=== PATIENT | male | born 1980 | race Hispanic/Latino ===

== ENCOUNTER 2018-08-09 08:44 | Observation (INO) | payer OTHER ==
[2018-08-09 08:55] VITALS: BMI 40.3
[2018-08-09 09:15] LABS: BASO # 0.01 K/mm3 (0.0-2.0); BASO % 0.2 % (0.0-3.0); EOS # 0.1 (0.0-0.7); EOS % 2.1 % (1.5-5.0); HEMOGLOBIN 15.9 g/dL (14.0-18.0); LYMPH # 1.8 (1.2-3.4); LYMPH % 27.7 % (22.0-35.0); MEAN CELL VOLUME 88.2 fl (80.0-105.0); MEAN CORPUSCULAR HEMOGLOBIN 30.7 pg (25.0-35.0); MEAN CORPUSCULAR HGB CONC 34.8 g/dl (31.0-37.0); MEAN PLATELET VOLUME 9.7 fl (7.0-11.0); MONO # 0.4 (0.1-0.6); MONO % 6.8 % (1.0-6.0); RBC 5.18 10^6/uL (3.5-6.1); RED CELL DISTRIBUTION WIDTH 12.3 % (11.5-14.5); WHITE BLOOD COUNT 6.3 10^3/uL (4.5-11.0)
[2018-08-09 09:21] LABS: INR 1.04; PARTIAL THROMBOPLASTIN TIME 34.5 Seconds (26.9-38.3); PROTHROMBIN TIME 11.7 SECONDS (9.4-12.5)
[2018-08-09 09:25] LABS: ALB/GLOB RATIO 1.4 (1.1-1.8); ALBUMIN 4.8 g/dL (3.0-4.8); ALT/SGPT 46 U/L (7-56); AST/SGOT 34 U/L (17-59); BLOOD UREA NITROGEN 12 mg/dL (7-21); CALCIUM 9.5 mg/dL (8.4-10.5); GFR NON-AFRICAN AMERICAN > 60
[2018-08-09] MEDS ORDERED: Sodium Chloride 0.9% 1,000 ML IV STA (09:27)
[2018-08-09 09:35] LABS: TROPONIN I < 0.01 ng/mL
--- NOTE | 2018-08-09 09:53 | ED PDOC ---
Arrival/HPI - General Chief Complaint: Palpitations Time Seen by Provider: 08/09/18 08:46 Historian: Patient - History of Present Illness Narrative History of Present Illness (Text): 08/09/18 08:46 Wilder Mccarthy is a 38 year old male, with a past medical history of gout and shoulder surgery, who presents to the emergency department complaining of chest pain since last night. Patient informs he has had similar symptoms before but has not consulted a physician regarding current complaint. Patient informs pain sensation as pressure rating the pain as a 5/10. Patient denies pain radiating to jaw or arm, fevers, headache, dyspnea on exertion, cough, abdominal pain, nausea, vomiting, diarrhea, back pain, neck pain, or any other complaint. Time/Duration: 24 hours Symptom Onset: Sudden Symptom Course: Intermittent Quality: Pressure Severity Level: 4 (between 4-5) Activities at Onset: Light Context: Home Past Medical History - Provider Review Nursing Documentation Reviewed: Yes - Musculoskeletal/Rheumatological Hx Gout: Yes - Psychiatric Hx Substance Use: No - Surgical History Other/Comment: L shoulder sx. R knee sx - Anesthesia Hx Anesthesia: Yes Hx Anesthesia Reactions: No Hx Malignant Hyperthermia: No Family/Social History - Physician Review Nursing Documentation Reviewed: Yes Family/Social History: Hypertension, CAD/[place] Smoking Status: Former Smoker Hx Alcohol Use: No Hx Substance Use: No Allergies/Home Meds Allergies/Adverse Reactions: Allergies No Known Allergies Allergy (Verified 08/09/18 12:27) Review of Systems - Physician Review All systems were reviewed & negative as marked: Yes - Review of Systems Constitutional: Night Sweats. absent: Fevers Respiratory: SOB. absent: Cough Cardiovascular: Chest Pain. absent: GIBBS Gastrointestinal: absent: Abdominal Pain, Diarrhea, Nausea, Vomiting Musculoskeletal: absent: Back Pain, Neck Pain Neurological: Dizziness. absent: Headache Physical Exam Vital Signs Reviewed: Yes Vital Signs Temp Pulse Resp BP Pulse Ox 08/09/18 08:57 102 H 18 153/97 H 95 08/09/18 08:44 98.8 F 100 H 20 153/97 H 96 Temperature: Afebrile Blood Pressure: Hypertensive Pulse: Tachycardic Respiratory Rate: Normal Appearance: Positive for: Well-Appearing, Non-Toxic, Comfortable Pain Distress: None Mental Status: Positive for: Alert and Oriented X 3 - Systems Exam Head: Present: Atraumatic, Normocephalic Pupils: Present: PERRL Extroacular Muscles: Present: EOMI Conjunctiva: Present: Normal Mouth: Present: Moist Mucous Membranes Neck: Present: Normal Range of Motion Respiratory/Chest: Present: Clear to Auscultation, Good Air Exchange. No: Respiratory Distress, Accessory Muscle Use, Wheezes, Rales, Rhonchi, Tender to Palpation (No tenderness to palpation to anterior chest wall) Cardiovascular: Present: Regular Rate and Rhythm, Normal S1, S2, Other (Hypertensive). No: Murmurs, Rub, Gallop Abdomen: No: Tenderness, Distention, Peritoneal Signs Back: Present: Normal Inspection Upper Extremity: Present: Normal Inspection. No: Cyanosis, Edema Lower Extremity: Present: Normal Inspection. No: Edema Neurological: Present: GCS=15, Speech Normal Skin: Present: Warm, Dry, Normal Color. No: Rashes Psychiatric: Present: Alert, Oriented x 3, Normal Insight, Normal Concentration Medical Decision Making ED Course and Treatment: 08/09/18 08:46 Impression: 38 year old male who presents to the emergency department with complaints of chest pain. Differential Diagnosis included but are not limited to: --ACS --PE Plan: -- EKG -- Labs -- Chest X-Ray -- O2 Nasal Cannula -- Urinalysis -- Nitrostat SL Tab -- Lopressor -- Reglan -- IV Fluids -- Reassess and disposition Prior Visits: Notes and results from previous visits were reviewed. Progress Notes: 08/09/18 10:[address] Schaefer(PCP), who is aware and accepts patient. He requests Dr. Landrum(cardiology) and medical imaging technologist for consult. 08/09/18 10:[address] Schaefer's medical imaging technologist, who is aware, accepts, and will come down to see patient. - Lab Interpretations Lab Results: PT 11.7 SECONDS (9.4-12.5) 08/09/18 08:50 INR 1.04 08/09/18 08:50 APTT 34.5 Seconds (26.9-38.3) 08/09/18 08:50 D-Dimer, Quantitative < 200 ng/mlDDU (0-243) 08/09/18 08:50 Troponin I < 0.01 ng/mL 08/09/18 08:50 Total Bilirubin 0.9 mg/dL (0.2-1.3) 08/09/18 08:50 AST 34 U/L (17-59) 08/09/18 08:50 ALT 46 U/L (7-56) 08/09/18 08:50 Alkaline Phosphatase 79 U/L (38-126) 08/09/18 08:50 Total Protein 8.3 g/dL (5.8-8.3) 08/09/18 08:50 Albumin 4.8 g/dL (3.0-4.8) 08/09/18 08:50 Globulin 3.5 gm/dL 08/09/18 08:50 Albumin/Globulin Ratio 1.4 (1.1-1.8) 08/09/18 08:50 08/09/18 08:50 08/09/18 08:50 Lab Results 08/09/18 09:50: Urine Color Yellow, Urine Appearance Clear, Urine pH 7.0, Ur Specific [place] 1.020, Urine Protein Negative, Urine Glucose (UA) Negative, Urine Ketones Negative, Urine Blood Small H, Urine Nitrate Negative, Urine Bilirubin Negative, Urine Urobilinogen 0.2, Ur Leukocyte Esterase Negative, Urine RBC 0 - 2, Urine WBC 0 - 2, Ur Epithelial Cells 0 - 2, Urine Bacteria Few 08/09/18 08:50: Hemoglobin A1c 5.6 08/09/18 08:50: Triglycerides 310 H, Cholesterol 193, LDL Cholesterol Direct 117, HDL Cholesterol 31 08/09/18 08:50: Free T4 0.98, TSH 3rd Generation 2.29, Alcohol, Quantitative < 10 08/09/18 08:50: D-Dimer, Quantitative < 200 08/09/18 08:50: PT 11.7, INR 1.04, APTT 34.5 08/09/18 08:50: WBC 6.3, RBC 5.18, Hgb 15.9, Hct 45.7, MCV 88.2, MCH 30.7, MCHC 34.8, RDW 12.3, Plt Count 468 H, MPV 9.7, Neut % (Auto) 63.2, Lymph % (Auto) 27.7, [place] % (Auto) 6.8 H, Eos % (Auto) 2.1, Baso % (Auto) 0.2, Lymph # (Auto) 1.8, [place] # (Auto) 0.4, Eos # (Auto) 0.1, Baso # (Auto) 0.01, Absolute Neuts (auto) 3.99 08/09/18 08:50: Sodium 140, Potassium 3.9, Chloride 104, Carbon Dioxide 25, Anion Gap 15, BUN 12, Creatinine 1.0, Est GFR ( Amer) > 60, Est GFR (Non- Af Amer) > 60, Random Glucose 100, Calcium 9.5, Total Bilirubin 0.9, AST 34, ALT 46, Alkaline Phosphatase 79, Troponin I < 0.01, Total Protein 8.3, Albumin 4.8, Globulin 3.5, Albumin/Globulin Ratio 1.4 I have reviewed the lab results: Yes - RAD Interpretation Narrative RAD Interpretations (Text): 08/09/18 10:30 Chest X-Ray shows: FINDINGS: LUNGS: No active pulmonary disease. PLEURA: No significant pleural effusion identified, no pneumothorax apparent. CARDIOVASCULAR: No aortic atherosclerotic calcification present. Normal cardiac size. No pulmonary vascular congestion. OSSEOUS STRUCTURES: No significant abnormalities. VISUALIZED UPPER ABDOMEN: Normal. OTHER FINDINGS: None. IMPRESSION: No active disease. 08/09/18 15:40 Carotid Artery US, shows: FINDINGS: There is mild intimal-medial thickening noted at the carotid bifurcations bilaterally. The peak systolic velocity in the proximal right internal carotid artery is 52 cm/sec. This corresponds to a 0-19 percent proximal right ICA stenosis. Normal systolic velocities are noted in the proximal right external carotid artery. There is antegrade flow in the small right vertebral artery. The peak systolic velocity in the proximal left internal carotid artery is 55 cm/sec. This corresponds to a 0-19 percent proximal left ICA stenosis. Normal systolic velocities are noted in the proximal left external carotid artery. There is antegrade flow in the dominant left vertebral artery. IMPRESSION: 1. Bilateral 0-19 percent proximal ICA stenoses. 2. Antegrade flow in both vertebral arteries. Radiology Orders: 08/09/18 08:55 CHEST PORTABLE [RAD] Stat Superintendent Service: Radiologist - EKG Interpretation EKG Interpretation (Text): 08/09/18 08:52 Reviewed EKG, shows: NSR at [address] elevations / depressions. No T wave inversions. Interpreted by ED Physician: Yes Type: 12 lead EKG - Medication Orders Current Medication Orders: Sodium Chloride (Sodium Chloride 0.9%) 1,000 mls @ 999 mls/hr IV .Q1H1M STA Stop: 08/09/18 10:27 Discontinued Medications Metoclopramide HCl (Reglan) 10 mg IVP STAT STA Stop: 08/09/18 09:28 Nitroglycerin (Nitrostat Sl Tab) 0.4 mg SL STAT STA Stop: 08/09/18 09:28 Discontinued Medications Acetaminophen (Tylenol 325mg Tab) 650 mg PO Q6 PRN PRN Reason: TEMP>=99.5F Acetaminophen (Tylenol 650 Mg Supp) 650 mg RC Q6H PRN PRN Reason: TEMP>=99.5F Allopurinol (Zyloprim) [address] [facility] Last Admin: 08/11/18 10:07 Dose: 100 mg Aspirin (Ecotrin) [address] [facility] Last Admin: 08/10/18 09:43 Dose: 81 mg Aspirin (Ecotrin) [address] [facility] Last Admin: 08/11/18 10:03 Dose: 81 mg Atorvastatin Calcium (Lipitor) [address] [facility] Last Admin: 08/09/18 17:30 Dose: 20 mg Atorvastatin Calcium (Lipitor) [address] [facility] Last Admin: 08/11/18 00:14 Dose: 40 mg Enoxaparin Sodium (Lovenox) [address] [facility]; Protocol Last Admin: 08/11/18 10:04 Dose: 40 mg Subcutaneous Administrations Document 08/11/18 10:04 THANH (Rec: 08/11/18 10:04 THANH [id number]) Charges for Administration # of Subcutaneous Administrations 1 Ergocalciferol (Drisdol 50,000 Intl Units Cap) [address] [facility] Last Admin: 08/11/18 00:16 Dose: 1 cap Hydrochlorothiazide (Microzide) 12.[address] [facility] Sodium Chloride (Sodium Chloride 0.9%) 1,000 mls @ 999 mls/hr IV .Q1H1M STA Stop: 08/09/18 10:27 Last Admin: 08/09/18 09:57 Dose: 999 mls/hr eMAR Start Stop Document 08/09/18 09:57 SRE (Rec: 08/09/18 09:58 SRE [id number]) Intravenous Solution Start Date 08/09/18 Start Time 09:50 End Date 08/09/18 End time 10:50 Total Infusion Time 60 Influenza Virus Vaccine (Flucelvax Quad 0698-1828 Syr) 60 mcg IM .ONCE ONE Stop: 08/09/18 17:30 Lisinopril (Zestril) [address] [facility] Last Admin: 08/10/18 09:43 Dose: 5 mg MAR Pulse and Blood Pressure Document 08/10/18 09:43 (Rec: 08/10/18 09:43 [id number]) Pulse Pulse Rate (60-90 beats/min) 69 Blood Pressure Blood Pressure (100/60-150/90 mm Hg) 165/101 Lisinopril (Zestril) [address] [facility] Last Admin: 08/11/18 10:06 Dose: 10 mg Metoclopramide HCl (Reglan) 10 mg IVP STAT STA Stop: 08/09/18 09:28 Last Admin: 08/09/18 09:59 Dose: 10 mg IVP Administration Document 08/09/18 09:59 SRE (Rec: 08/09/18 09:59 SRE [id number]) Charges for Administration # of IVP Administrations 1 Metoprolol Tartrate (Lopressor) 5 mg IVP STAT STA Stop: 08/09/18 10:08 Last Admin: 08/09/18 10:20 Dose: 5 mg IVP Administration Document 08/09/18 10:20 SRE (Rec: 08/09/18 10:20 SRE [id number]) Charges for Administration # of IVP Administrations 1 MAR Pulse and Blood Pressure Document 08/09/18 10:20 SRE (Rec: 08/09/18 10:20 SRE [id number]) Pulse Pulse Rate (60-90 beats/min) 91 Blood Pressure Blood Pressure (100/60-150/90 mm Hg) 148/96 Metoprolol Tartrate (Lopressor) [address] [facility] Last Admin: 08/11/18 08:16 Dose: 25 mg Nitroglycerin (Nitrostat Sl Tab) 0.4 mg SL STAT STA Stop: 08/09/18 09:28 Last Admin: 08/09/18 10:00 Dose: 0.4 mg [id number] Ethyl Esters (Lovaza) [address] [facility] Last Admin: 08/11/18 10:03 Dose: 2 gm Ondansetron HCl (Zofran Inj) 4 mg IVP Q4H PRN PRN Reason: Nausea/Vomiting Pantoprazole Sodium (Protonix Ec Tab) [address] [facility] Last Admin: 08/10/18 07:15 Dose: 40 mg Pneumococcal Polyvalent Vaccine (Pneumovax 23 Vaccine) 0.5 ml IM .ONCE ONE Stop: 08/09/18 17:30 - Scribe Statement The provider has reviewed the documentation as recorded by the Scriblorenza Kauffman All medical record entries made by the Nathanieliblorenza were at my direction and personally dictated by me. I have reviewed the chart and agree that the record accurately reflects my personal performance of the history, physical exam, medical decision making, and the department course for this patient. I have also personally directed, reviewed, and agree with the discharge instructions and disposition. Disposition/Present on Arrival - Present on Arrival Any Indicators Present on Arrival: No History of DVT/PE: No History of Uncontrolled Diabetes: No Urinary Catheter: No History of Decub. Ulcer: No History Surgical Site Infection Following: None - Disposition Have Diagnosis and Disposition been Completed?: Yes Diagnosis: Chest pain Disposition: HOSPITALIZED Disposition Time: 10:00 Patient Plan: Admission Condition: GOOD
[2018-08-09] MEDS ORDERED: Metoprolol 1 mg/ml Inj IVP STA (10:07)
[2018-08-09 10:15] LABS: URINE BILIRUBIN NEGATIVE (NEGATIVE); URINE BLOOD SMALL (NEGATIVE); URINE GLUCOSE (UA) NEGATIVE (NEGATIVE); URINE LEUKOCYTE ESTERASE NEGATIVE Leu/uL (NEGATIVE); URINE PROTEIN NEGATIVE mg/dL (<30 mg/dL); URINE UROBILINOGEN 0.2 E.U./dL (<1 E.U./dL)
[2018-08-09 10:17] LABS: URINE APPEARANCE CLEAR (CLEAR); URINE COLOR YELLOW (YELLOW)
--- NOTE | 2018-08-09 10:24 | RAD ---
Date of service: 08/09/2018 HISTORY: chest pain COMPARISON: No prior. FINDINGS: LUNGS: No active pulmonary disease. PLEURA: No significant pleural effusion identified, no pneumothorax apparent. CARDIOVASCULAR: No aortic atherosclerotic calcification present. Normal cardiac size. No pulmonary vascular congestion. OSSEOUS STRUCTURES: No significant abnormalities. VISUALIZED UPPER ABDOMEN: Normal. OTHER FINDINGS: None. IMPRESSION: No active disease.
--- NOTE | 2018-08-09 10:25 | CP.PCM.HP ---
History of Present Illness - History of Present Illness History of Present Illness: PGY-[address] Schaefer CC: Palpitation, chest pain, lightheadedness Mr Mccarthy, 38M, with PMH light smoker/gout/HTN and family hx of premature cardiac c/o palpitation since last night. There were similar events in the past but has not consulted a physician. However, this current episodes was associated with chest pain, lightheadedness, and nausea, which prompted pt to come to the ED. He was [place] down in [place] last night when he felt the palpitation "racing heart" with chest pain. The chest pain is pressure-like, 4-5/10, as sociated with lighheadedness and nausea. No strenous exercise, no recent sickess, no extraordinary stressors in life (+) travel on [employer] [place]. At baseline, he is able climb 1 flight of stairs without SOB. ROS: Denies pain radiating to jaw or arm, fevers, headache, dyspnea on exertion, cough, abdominal pain, nausea, vomiting, diarrhea, back pain, neck pain, or any other complaint. (+) wt gain 40 lbs in last 2 years ED course: Tachycardia 102. 150/100. 92 on RA EKG: NSR at [address] elevations / depressions. No T wave inversions. CBC, CMP wnl. D-dimer nl. He received 1L NS, nitrostate x 1, lopressor 5 iv x 1, reglan x 1 Pending UDS, U/A PMH HTN not on med gout, acute attack 3 weeks ago Former smoker PSH L shoulder/R knee surgery Congenital femoral hernia repair at b/l, [facility] Dad - Premature cardiac [place] @ 56 yo SH Patient works with [employer]. 2 weeks on, 2 weeks off. During off, he stay at home in [place] with and kids. 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 R knee sx - ANESTHESIA Hx Anesthesia: Yes Hx Anesthesia Reactions: No Hx Malignant Hyperthermia: No Meds Allergies/Adverse Reactions: Allergies Allergy/AdvReac Type Severity Reaction Status Date / Time No Known Allergies Allergy Verified 08/09/18 12:27 Physical Exam - Constitutional Appears: No Acute Distress - Head Exam Head Exam: ATRAUMATIC, NORMAL INSPECTION, NORMOCEPHALIC - Eye Exam Eye Exam: EOMI, Normal appearance, PERRL. absent: Scleral icterus Pupil Exam: NORMAL ACCOMODATION - ENT Exam ENT Exam: Mucous Membranes Moist - Neck Exam Neck exam: Positive for: Full Rom, Normal Inspection - Respiratory Exam Respiratory Exam: Clear to Auscultation Bilateral, NORMAL BREATHING PATTERN. absent: Rales, Rhonchi, Wheezes - Cardiovascular Exam Cardiovascular Exam: REGULAR RHYTHM, +S1, +S2. absent: Systolic Murmur - GI/Abdominal Exam GI & Abdominal Exam: Normal Bowel Sounds, Soft. absent: Distended, Guarding, Rigid, Tenderness - Extremities Exam Extremities exam: Positive for: normal capillary refill, pedal edema, pedal pulses present - Back Exam Back exam: absent: CVA tenderness (L), CVA tenderness (R), paraspinal tenderness - Neurological Exam Neurological exam: Alert, CN II-XII Intact, Oriented x3 - Psychiatric Exam Psychiatric exam: Normal Affect, Normal Mood - Skin Skin Exam: Dry, Warm Results - Vital Signs Recent Vital Signs: Last Vital Signs Temp 98.8 F 08/09/18 08:44 Pulse 91 H 08/09/18 10:20 Resp 18 08/09/18 10:16 BP 148/96 H 08/09/18 10:20 Pulse Ox 92 L 08/09/18 10:16 - Labs Result Diagrams: 08/09/18 08:50 08/09/18 08:50 Labs: Laboratory Results - last 24 hr 08/09/18 08/09/18 08/09/18 08:50 08:50 08:50 WBC 6.3 RBC 5.18 Hgb 15.9 Hct 45.7 MCV 88.2 MCH 30.7 MCHC 34.8 RDW 12.3 Plt Count 468 H MPV 9.7 Neut % (Auto) 63.2 Lymph % (Auto) 27.7 [place] % (Auto) 6.8 H Eos % (Auto) 2.1 Baso % (Auto) 0.2 Lymph # (Auto) 1.8 [place] # (Auto) 0.4 Eos # (Auto) 0.1 Baso # (Auto) 0.01 Absolute Neuts (auto) 3.99 PT 11.7 INR 1.04 APTT 34.5 D-Dimer, Quantitative Sodium 140 Potassium 3.9 Chloride 104 Carbon Dioxide 25 Anion Gap 15 BUN 12 Creatinine 1.0 Est GFR ( Amer) > 60 Est GFR (Non-Af Amer) > 60 Random Glucose 100 Calcium 9.5 Total Bilirubin 0.9 AST 34 ALT 46 Alkaline Phosphatase 79 Troponin I < 0.01 Total Protein 8.3 Albumin 4.8 Globulin 3.5 Albumin/Globulin Ratio 1.4 Urine Color Urine Appearance Urine pH Ur Specific Martin Urine Protein Urine Glucose (UA) Urine Ketones Urine Blood Urine Nitrate Urine Bilirubin Urine Urobilinogen Ur Leukocyte Esterase 08/09/18 08/09/18 08:50 09:50 WBC RBC Hgb Hct MCV MCH MCHC RDW Plt Count MPV Neut % (Auto) Lymph % (Auto) [place] % (Auto) Eos % (Auto) Baso % (Auto) Lymph # (Auto) [place] # (Auto) Eos # (Auto) Baso # (Auto) Absolute Neuts (auto) PT INR APTT D-Dimer, Quantitative < 200 Sodium Potassium Chloride Carbon Dioxide Anion Gap BUN Creatinine Est GFR ( Amer) Est GFR (Non-Af Amer) Random Glucose Calcium Total Bilirubin AST ALT Alkaline Phosphatase Troponin I Total Protein Albumin Globulin Albumin/Globulin Ratio Urine Color Yellow Urine Appearance Clear Urine pH 7.0 Ur Specific Martin 1.020 Urine Protein Negative Urine Glucose (UA) Negative Urine Ketones Negative Urine Blood Small H Urine Nitrate Negative Urine Bilirubin Negative Urine Urobilinogen 0.2 Ur Leukocyte Esterase Negative Assessment & Plan - Assessment and Plan (Free Text) Plan: Mr Mccarthy, 38M, with PMH light smoker/gout/HTN and family hx of premature cardiac c/o palpitation with chest pain and lightheadedness Chest pain r/o ACS Hamily Hx Premature cardiac [place] @ 56 yo - Telemetry - trops q8, serial EKG - TSH/Free T4/Lipid/A1C - Echocardiogram - Add lipitor (ASCVD risk assuming age 40 is 9.3%) Symptomatic Tachycardia with Palpitation, primary vs secondary - No electrolyte abnormality. - ETOH level nl. UDS neg - Serial EKG to see if accessory pathway. May need outpt loop recorder? Lightheadedness - carotid u/s - echocardiogram - orthostatic VS HTN - start HCTZ Obesity BMI 40 - Healthy lifestyle counseling - Heart health diet Hx gout, acute attack 3 weeks ago - check uric acid Light smoker - breastfeeding peer counselor on cessation Prphylaxos - SCD, low risk of GI ulcer s/r/d/w Dr Schaefer
[2018-08-09 10:40] LABS: URINE BACTERIA FEW /hpf; URINE EPITHELIAL CELLS 0 - 2 /hpf (0-5); URINE RBC 0 - 2 /hpf (0-2); URINE WBC 0 - 2 /hpf (0-6)
[2018-08-09 10:47] LABS: HDL CHOLESTEROL 31 mg/dL (29-60)
[2018-08-09 11:00] LABS: LDL CHOLESTEROL 117 mg/dL (0-129)
[2018-08-09 11:03] LABS: FREE T4 0.98 ng/dL (0.78-2.19)
[2018-08-09 11:12] LABS: BARBITURATES, UR NEGATIVE (NEGATIVE); BENZODIAZEPINES, UR NEGATIVE (NEGATIVE); OPIATES, UR NEGATIVE (NEGATIVE); PHENCYCLIDINE, UR NEGATIVE (NEGATIVE)
[2018-08-09 12:10] VITALS: O2SAT 96
--- NOTE | 2018-08-09 15:08 | CARD ---
APPROVED REPORT Date of service: 08/09/2018 EKG Measurement Heart [id number] MD [id number] <Conclusion> Normal sinus rhythm Normal ECG
[2018-08-09 15:14] LABS: TROPONIN I < 0.01 ng/mL
--- NOTE | 2018-08-09 15:24 | US ---
PROCEDURE: Bilateral carotid artery duplex ultrasound HISTORY: Carotid stenosis lightheadedness PHYSICIAN(S): Cliff Arias MD. TECHNIQUE: Duplex sonography and color-flow Doppler were used to evaluate the carotid bifurcations and limited segments of the vertebral arteries bilaterally. FINDINGS: There is mild intimal-medial thickening noted at the carotid bifurcations bilaterally. The peak systolic velocity in the proximal right internal carotid artery is 52 cm/sec. This corresponds to a 0-19 percent proximal right ICA stenosis. Normal systolic velocities are noted in the proximal right external carotid artery. There is antegrade flow in the small right vertebral artery. The peak systolic velocity in the proximal left internal carotid artery is 55 cm/sec. This corresponds to a 0-19 percent proximal left ICA stenosis. Normal systolic velocities are noted in the proximal left external carotid artery. There is antegrade flow in the dominant left vertebral artery. IMPRESSION: 1. Bilateral 0-19 percent proximal ICA stenoses. 2. Antegrade flow in both vertebral arteries.
[2018-08-09] MEDS ORDERED: Pneumococcal 23-Valent Vaccine IM ONE (17:29)
[2018-08-09] MEDS ORDERED: Influenza Vaccine 60 mcg/0.5 mL SYR (4YR UP) IM ONE (17:29)
[2018-08-09 19:58] LABS: HEPATITIS B SURFACE AG Negative (NEGATIVE)
[2018-08-09 20:04] LABS: HEPATITIS A IGM NEGATIVE (NEGATIVE); HEPATITIS B CORE AB NEGATIVE (NEGATIVE)
[2018-08-09 20:15] LABS: HEPATITIS C ANTIBODY NEGATIVE (NEGATIVE)
[2018-08-09 20:26] LABS: TROPONIN I < 0.01 ng/mL
[2018-08-09] MEDS: Omega-3-Acid Ethyl Esters 1 GM Cap PO SCH (21:16)
[2018-08-10 02:32] LABS: TROPONIN I < 0.01 ng/mL
[2018-08-10 04:59] LABS: TROPONIN I < 0.01 ng/mL
[2018-08-10] MEDS ORDERED: Pantoprazole 40 mg EC Tab PO SCH (06:00)
[2018-08-10 08:59] LABS: BASO # 0.01 K/mm3 (0.0-2.0); BASO % 0.2 % (0.0-3.0); EOS # 0.1 (0.0-0.7); EOS % 1.7 % (1.5-5.0); HEMOGLOBIN 16.2 g/dL (14.0-18.0); LYMPH # 1.8 (1.2-3.4); LYMPH % 31.3 % (22.0-35.0); MEAN CELL VOLUME 89.3 fl (80.0-105.0); MEAN CORPUSCULAR HEMOGLOBIN 30.3 pg (25.0-35.0); MEAN PLATELET VOLUME 9.7 fl (7.0-11.0); MONO # 0.2 (0.1-0.6); MONO % 4.1 % (1.0-6.0); RBC 5.34 10^6/uL (3.5-6.1); RED CELL DISTRIBUTION WIDTH 12.5 % (11.5-14.5); WHITE BLOOD COUNT 5.8 10^3/uL (4.5-11.0)
[2018-08-10 09:10] LABS: ALB/GLOB RATIO 1.3 (1.1-1.8); ALBUMIN 4.8 g/dL (3.0-4.8); ALT/SGPT 48 U/L (7-56); AST/SGOT 39 U/L (17-59); BLOOD UREA NITROGEN 14 mg/dL (7-21); CALCIUM 9.9 mg/dL (8.4-10.5); GFR NON-AFRICAN AMERICAN > 60
[2018-08-10 09:21] LABS: TROPONIN I < 0.01 ng/mL
[2018-08-10] MEDS: Enoxaparin 40 mg Syringe SC SCH (09:43)
[2018-08-10] MEDS: Omega-3-Acid Ethyl Esters 1 GM Cap PO SCH ×2 (09:44→17:47)
--- NOTE | 2018-08-10 15:13 | PN ---
DATE: 08/10/2018 SUBJECTIVE: The patient is seen lying in room 266 bed three. The patient this morning states that he had an episode of palpitation, but the patient did not notify the nurses. The patient states that there was a question about chest pain also with the palpitations, but the patient did not notify the nurses. The patient's telemetry monitoring was reviewed for the last 12 to 24 hours, which showed sinus rhythm without any arrhythmias. PHYSICAL EXAMINATION: GENERAL: The patient was seen lying in the bed comfortable. VITAL SIGNS: T-max 98.3, heart rate 76, 71, 93, 74. Blood pressure 138/83, 150/92, 129/90, 133/81. Respiration 20, O2 sat is 92-96%. HEENT: Head examination normocephalic, atraumatic. HEENT examination shows pink conjunctivae. Anicteric sclerae. No oropharyngeal lesion. NECK: No neck rigidity. CHEST: Kyphosis. LUNGS: Shows no audible crackle, rales or wheezing. CARDIOVASCULAR: Shows S1, S2, regular rhythm. ABDOMEN: Morbidly obese. Positive bowel sounds. Unable to appreciate any hepatosplenomegaly. GENITALIA: Male. RECTAL: Deferred. EXTREMITIES: Shows no pitting edema, no Homans' sign. NEUROLOGIC: The patient is alert, awake, oriented x3. Cranial nerves II-XII intact. Gait examination is independent. Body mass index is 40 and above. DIAGNOSTIC: From 08/10/2018, CBC is within normal limits. PT/PTT, D-dimer negative. Sodium 139. Chemistry, LFTs are within normal limit. Bilirubin is 2.4, from 0.9-2.4. Troponin, all sets are negative. Triglyceride 310, cholesterol 193, LDL 117. Thyroid panel is negative. Uric acid is 9.2, hemoglobin A1c 5.6. Urinalysis small blood, few bacteria, protein negative. Urine drug screen, alcohol level negative. RPR, hepatitis A, B, C negative. Carotid ultrasound is negative. EKG shows sinus rhythm. Cardiology evaluation pending. IMPRESSION AND PLAN: 1. Precordial left-sided chest pain, tightness and pressure with palpitations. 2. Questionable uncontrolled accelerated hypertension. 3. Palpitations. 4. History of hypertension, on no medication. 5. History of hyperuricemia. 6. History of former smoker. 7. History of hypertension. 8. Family history of premature coronary artery disease and myocardial infarction and . 9. Tachycardia. 10. History of left shoulder surgery and right knee surgery. 11. History of bilateral inguinal hernia surgery. 12. Alcohol and smoking. 13. History of gonorrhea and Chlamydia treated. 14. Hyperuricemia. 15. Transient uncontrolled hypertension with tachycardia. 16. Mild thrombocytosis. 17. Hypertriglyceridemia, hyperlipidemia with elevated LDL and decreased HDL. 18. Microscopic hematuria. 19. Morbid obesity with elevated body mass index of 40. PLAN: Plan at this time, the patient is awaiting cardiology evaluation regarding further recommendation. CURRENT MEDICATIONS: Ecotrin 81 mg daily, Lipitor 40 mg daily, Lopressor 25 mg every 12 hours, Lovaza 2 g twice a day, Lovenox 40 mg subcu daily for DVT prophylaxis, Protonix 40 mg daily, Tylenol 650 p.o. suppository every 6 hours p.r.n., Zestril 5 mg daily, Zofran 4 IV every 4 hours p.r.n., allopurinol 100 mg daily, incentive spirometry, out of bed. Echo with Doppler. Repeat EKG ordered. The patient has been ordered out of bed to chair ad-carmen. The patient has been updated about his diagnostic test results. Plan at this time awaiting further cardiology evaluation recommendation, awaiting echocardiogram report. The patient counseled about cessation of smoking, alcohol. The patient counseled about weight loss, exercise compliance with diet, medication and counseled about close followup with his medical doctor and front line supervisor in [place]. The patient was advised and counseled about close followup with PMD and front line supervisor in [place] upon discharge. Charles Schaefer MD
--- NOTE | 2018-08-10 16:46 | CON ---
DATE: 08/10/2018 CARDIOLOGY CONSULTATION HISTORY: The patient is a 38-year-old male, who is from [place], who works on a tugboat, who presents with symptoms consistent with an SVT. He complains of palpitations, intermittent. PAST MEDICAL HISTORY: The patient's past medical history is free of cardiac disease. No angina, no shortness of breath. However, in the hospital, he was found to be hypertensive as well as have a high triglyceride. He denies previous myocardial infarction. No family history. SOCIAL HISTORY: He does not smoke, but does drink regularly. REVIEW OF SYSTEMS: Free of cardiac symptoms other than palpitations. No chest pain noted. PHYSICAL EXAMINATION: GENERAL: The patient is a heavy-set male, in no acute distress. VITAL SIGNS: Stable. NECK: Negative JVD. LUNGS: Without rales. HEART: Reveal S1, S2. EXTREMITIES: Without edema. LABORATORY DATA: EKG is within normal limits. His intervals are within normal limits. Troponins are negative. The triglyceride is elevated. IMPRESSION: 1. Palpitations. 2. Probable supraventricular tachycardia. 3. Hypertension. 4. Overweight. 5. Hypertriglyceridemia. Given these findings, an echocardiogram has been done. I agree with placing the patient on a beta tacho. We will the patient in the morning before he gets discharged to clearance for work. Once he gets discharged, he is on his way back to [place] on a tugboat. Cliff Landrum MD
[2018-08-10] MEDS ORDERED: Ergocalciferol 50,000 Intl Units Cap PO SCH (23:30)
--- NOTE | 2018-08-11 08:54 | CARD ---
APPROVED REPORT Date of service: 08/10/2018 EKG Measurement Heart [id number] <Conclusion> Normal sinus rhythm Normal ECG
--- NOTE | 2018-08-11 09:31 | CARD ---
APPROVED REPORT Date of service: 08/10/2018 EXAM: Two-dimensional and M-mode echocardiogram with Doppler and color Doppler. INDICATION Chest Pain PALPITATIONS/LIGHT HEADED 2D DIMENSIONS Left Atrium (2D)4.4 (1.6-4.0cm)IVSd1.3 (0.7-1.1cm) LVDd4.7 (3.9-5.9cm)PWd1.4 (0.7-1.1cm) LVDs3.4 (2.5-4.0cm)FS (%) 27.1 % LVEF (%)52.6 (>50%) M-Mode DIMENSIONS Aortic Root3.70 (2.2-3.7cm)Aortic Cusp Exc.2.30 (1.5-2.0cm) Aortic Valve AoV Peak Drnscgpk051.0cm/Hoa Peak GR.7mmHg Mitral Valve MV E Xxzetcxy62.4cm/sMV A Vgkyyyif51.8cm/sE/A ratio1.5 TDI Lateral E' Peak V11.40cm/sMedial E' Peak V11.10cm/sE/Lateral E'7.4 E/Medial E'7.6 Pulmonary Valve PV Peak Aqmivlvl58.2cm/sPV Peak Grad.1mmHg Tricuspid Valve TR Peak Ozcqmxog401lw/sRAP SERVMYKX35bwTgJY Peak Gr.18mmHg AGEU07znZs LEFT VENTRICLE There is mild concentric left ventricular hypertrophy. The left ventricular function is normal. The left ventricular ejection fraction is within the normal range. RIGHT VENTRICLE The right ventricle is normal size. ATRIA The left atrium is mildly dilated. The right atrium size is normal. AORTIC VALVE The aortic valve is normal in structure. MITRAL VALVE The mitral valve is normal in structure. TRICUSPID VALVE The tricuspid valve is normal in structure. There is trace to mild tricuspid regurgitation. There is no pulmonary hypertension. PULMONIC VALVE The pulmonary valve is normal in structure. PERICARDIAL EFFUSION There is no pericardial effusion. <Conclusion> Mild LVH with good LV function Mildly dilated LA Mild TR No pulmonary hypertension
[2018-08-11 09:35] LABS: ALB/GLOB RATIO 1.3 (1.1-1.8); ALBUMIN 4.3 g/dL (3.0-4.8); ALT/SGPT 49 U/L (7-56); AST/SGOT 39 U/L (17-59); BLOOD UREA NITROGEN 16 mg/dL (7-21); CALCIUM 9.6 mg/dL (8.4-10.5); GFR NON-AFRICAN AMERICAN > 60
--- NOTE | 2018-08-11 09:46 | CP.PCM.DIS ---
Provider - Provider Date of Admission: 08/09/18 10:08 Attending physician: Charles Schaefer MD Consults: 08/09/18 10:12 Cardiology Consult Routine Comment: Consulting Provider: Cliff Landrum Consulting Physician: Cliff Landrum Reason for Consult: angina 08/09/18 17:29 Inpatient [facility] Core Measures Referral Routine Comment: Physician Instructions: Reason For Exam: EVALUATION Nursing Referral for Wound Care Routine Comment: Physician Instructions: Reason For Exam: EVALUATION Transition In Care/Readmission Reduction Routine Comment: Physician Instructions: Reason For Exam: EVALUATION Time Spent in preparation of Discharge (in minutes): 40 Diagnosis - Discharge Diagnosis (1) Chest pain Status: Acute (2) Palpitations Status: Acute (3) Paroxysmal SVT (supraventricular tachycardia) Status: Acute (4) Family history of premature coronary heart disease Status: Acute (5) Hypertension Status: Acute Hospital Course - Lab Results Lab Results: Most Recent Lab Values WBC 5.8 10^3/uL (4.5-11.0) 08/10/18 08:30 RBC 5.34 10^6/uL (3.5-6.1) 08/10/18 08:30 Hgb 16.2 g/dL (14.0-18.0) 08/10/18 08:30 Hct 47.7 % (42.0-52.0) 08/10/18 08:30 MCV 89.3 fl (80.0-105.0) 08/10/18 08:30 MCH 30.3 pg (25.0-35.0) 08/10/18 08:30 MCHC 34.0 g/dl (31.0-37.0) 08/10/18 08:30 RDW 12.5 % (11.5-14.5) 08/10/18 08:30 Plt Count 468 10^3/uL (120.0-450.0) H 08/10/18 08:30 MPV 9.7 fl (7.0-11.0) 08/10/18 08:30 Neut % (Auto) 62.7 % (50.0-68.0) 08/10/18 08:30 Lymph % (Auto) 31.3 % (22.0-35.0) 08/10/18 08:30 [place] % (Auto) 4.1 % (1.0-6.0) 08/10/18 08:30 Eos % (Auto) 1.7 % (1.5-5.0) 08/10/18 08:30 Baso % (Auto) 0.2 % (0.0-3.0) 08/10/18 08:30 Lymph # (Auto) 1.8 (1.2-3.4) 08/10/18 08:30 [place] # (Auto) 0.2 (0.1-0.6) 08/10/18 08:30 Eos # (Auto) 0.1 (0.0-0.7) 08/10/18 08:30 Baso # (Auto) 0.01 K/mm3 (0.0-2.0) 08/10/18 08:30 Absolute Neuts (auto) 3.64 (1.4-6.5) 08/10/18 08:30 PT 11.7 SECONDS (9.4-12.5) 08/09/18 08:50 INR 1.04 08/09/18 08:50 APTT 34.5 Seconds (26.9-38.3) 08/09/18 08:50 D-Dimer, Quantitative < 200 ng/mlDDU (0-243) 08/09/18 08:50 Sodium 138 mmol/L (132-148) 08/11/18 07:25 Potassium 3.9 mmol/L (3.6-5.0) 08/11/18 07:25 Chloride 102 mmol/L (98-107) 08/11/18 07:25 Carbon Dioxide 29 mmol/L (21-33) 08/11/18 07:25 Anion Gap 11 (10-20) 08/11/18 07:25 BUN 16 mg/dL (7-21) 08/11/18 07:25 Creatinine 1.2 mg/dl (0.8-1.5) 08/11/18 07:25 Est GFR ( Amer) > 60 08/11/18 07:25 Est GFR (Non-Af Amer) > 60 08/11/18 07:25 Random Glucose 92 mg/dL (70-110) 08/11/18 07:25 Hemoglobin A1c 5.6 % (4.2-6.5) 08/09/18 08:50 Uric Acid 9.2 mg/dL (3.5-8.5) H 08/09/18 11:00 Calcium 9.6 mg/dL (8.4-10.5) 08/11/18 07:25 Magnesium 2.2 mg/dL (1.7-2.2) 08/10/18 08:30 Total Bilirubin 2.3 mg/dL (0.2-1.3) H 08/11/18 07:25 AST 39 U/L (17-59) 08/11/18 07:25 ALT 49 U/L (7-56) 08/11/18 07:25 Alkaline Phosphatase 66 U/L (38-126) 08/11/18 07:25 Lactate Dehydrogenase 530 U/L (333-699) 08/10/18 08:30 Total Creatine Kinase 200 U/L (35-230) 08/10/18 08:30 Troponin I < 0.01 ng/mL 08/10/18 08:30 Total Protein 7.5 g/dL (5.8-8.3) 08/11/18 07:25 Albumin 4.3 g/dL (3.0-4.8) 08/11/18 07:25 Globulin 3.2 gm/dL 08/11/18 07:25 Albumin/Globulin Ratio 1.3 (1.1-1.8) 08/11/18 07:25 Triglycerides 310 mg/dL (35-160) H 08/09/18 08:50 Cholesterol 193 mg/dL (130-200) 08/09/18 08:50 LDL Cholesterol Direct 117 mg/dL (0-129) 08/09/18 08:50 HDL Cholesterol 31 mg/dL (29-60) 08/09/18 08:50 25-OH Vitamin D Total 15.9 NG/ML (30.0-100.0) L 08/09/18 19:30 Free T4 0.98 ng/dL (0.78-2.19) 08/09/18 08:50 Thyroxine (T4) 8.0 ug/dL (5.5-11.0) 08/09/18 15:00 TSH 3rd Generation 2.29 mIU/mL (0.46-4.68) 08/09/18 08:50 Urine Color Yellow (YELLOW) 08/09/18 09:50 Urine Appearance Clear (CLEAR) 08/09/18 09:50 Urine pH 7.0 (4.7-8.0) 08/09/18 09:50 Ur Specific [place] 1.020 (1.005-1.035) 08/09/18 09:50 Urine Protein Negative mg/dL (<30 mg/dL) 08/09/18 09:50 Urine Glucose (UA) Negative mg/dL (NEGATIVE) 08/09/18 09:50 Urine Ketones Negative mg/dL (NEGATIVE) 08/09/18 09:50 Urine Blood Small (NEGATIVE) H 08/09/18 09:50 Urine Nitrate Negative (NEGATIVE) 08/09/18 09:50 Urine Bilirubin Negative (NEGATIVE) 08/09/18 09:50 Urine Urobilinogen 0.2 E.U./dL (<1 E.U./dL) 08/09/18 09:50 Ur Leukocyte Esterase Negative [place]/uL (NEGATIVE) 08/09/18 09:50 Urine RBC 0 - 2 /hpf (0-2) 08/09/18 09:50 Urine WBC 0 - 2 /hpf (0-6) 08/09/18 09:50 Ur Epithelial Cells 0 - 2 /hpf (0-5) 08/09/18 09:50 Urine Bacteria Few /hpf (NONE) 08/09/18 09:50 Urine Opiates Screen Negative (NEGATIVE) 08/09/18 10:25 Urine Methadone Screen Negative (NEGATIVE) 08/09/18 10:25 Ur Barbiturates Screen Negative (NEGATIVE) 08/09/18 10:25 Ur Phencyclidine Scrn Negative (NEGATIVE) 08/09/18 10:25 Ur Amphetamines Screen Negative (NEGATIVE) 08/09/18 10:25 U Benzodiazepines Scrn Negative (NEGATIVE) 08/09/18 10:25 U Oth Cocaine Metabols Negative (NEGATIVE) 08/09/18 10:25 U Cannabinoids Screen Negative (NEGATIVE) 08/09/18 10:25 Alcohol, Quantitative < 10 mg/dL (0-10) 08/09/18 08:50 RPR Nonreactive (NONREACTIVE) 08/09/18 16:20 C.trachomatis RNA (TMA) Not detected (Not Detected) 08/09/18 16:20 Hepatitis A IgM Ab Negative (NEGATIVE) 08/09/18 16:20 Hep Bs Antigen Negative (NEGATIVE) 08/09/18 16:20 Hep B Core IgM Ab Negative (NEGATIVE) 08/09/18 16:20 Hepatitis C Antibody Negative (NEGATIVE) 08/09/18 16:20 HSV I IgG Ab 40.80 index H 08/09/18 19:30 HSV II IgG <0.90 index 08/09/18 19:30 HIV 1&2 Ag/Ab, 4th Gen Nonreactive (Nonreactive) 08/09/18 19:30 N.gonorrhoeae RNA (TMA) Not detected (Not Detected) 08/09/18 16:20 - Hospital Course Hospital Course: PGY-[address] Schaefer Mr Mccarthy, 38M, with PMH light smoker/gout/HTN and family hx of premature cardiac c/o palpitation with chest pain and lightheadedness. On admission, his BP was 150s/100s. As for chest pain, Cardiac stress test is normal, No acute coronary syndrome. Echocardiogram showed dilated RA and mild concentric L ventricular hypertrophy, likely due to effect of uncontrolled hypertension. Serial troponins/EKG, electrolytes, SH/Free T4/Lipid/A1C, all normal. His vit D was low, added vit D supplement. ETOH level nl. UDS neg. For his BP, he is started on lisinopril. His cholesterol is 193, triglyceride 310, and LDL 117, he was put on lipitor/lovaza/ASA. Pt is Obesity BMI 40, he received Healthy lifestyle counseling, weight loss counseling, and Heart health diet counseling. He is a Light smoker, he received dependency counselor on cessation As for palpitation and Lightheadedness, it is likely due to probable supraventricular tachycardia. Telemetry did not show acute rhythm changes. Orthostatic Vital sign within normal limited. carotid u/s did not show significant stenosis b/l. Toprol is started to control his heart rate. His uric acid is 9 without tophi, allopurinol is added Patient is cleared by cardiology to go back to work upon discharge from hospital. Discharge Exam - Head Exam Head Exam: ATRAUMATIC, NORMAL INSPECTION, NORMOCEPHALIC Discharge Plan - Discharge Medications Prescriptions: Allopurinol [Zyloprim] 100 mg PO DAILY #30 tab Aspirin [Ecotrin] 81 mg PO DAILY #30 tabec Atorvastatin [Lipitor] 40 mg PO DIN #30 tab Ergocalciferol [Drisdol 50,000 Intl Units Cap] 1 cap PO Q7D #12 cap Lisinopril [Zestril] 10 mg PO DAILY #30 tab Metoprolol Succinate XL [Toprol XL] 25 mg PO DAILY #30 tab [id number] Ethyl Esters 1 GM [Lovaza] 2 gm PO BID #30 sgl Pantoprazole [Protonix EC Tab] 40 mg PO 0600 #7 ect - Follow Up Plan Condition: GOOD Disposition: HOME/ ROUTINE Instructions: Angina (DC) Additional Instructions: Patient may be discharged pending clearance by cardiology. Patient needs to start healthy diet and weight reduction. He should visit his in home aide and primary care doctor IN [place] within this week for continual heart rate monitoring and clearance to go back to work. If any new symptoms, call primary care doctor or visit emergency room PATIENT TO RELEASE ALL RECORDS FROM THIS HOSPITALIZATION TO PMD AND INTEGRATED MARKETING SPECIALIST IN [place] DISCHARGE MEDICATIONS PER NEW SCRIPTS--GIVE ALL SCRIPTS TO PATIENT UPON DISCHARGE.
[2018-08-11] MEDS: Omega-3-Acid Ethyl Esters 1 GM Cap PO SCH (10:03)
[2018-08-11] MEDS: Enoxaparin 40 mg Syringe SC SCH (10:04)
[2018-08-11 12:17] VITALS: BP 123/82; PULSE 77; RESP 18; TEMP 98.2
--- NOTE | 2018-08-11 13:48 | PN ---
DATE: 08/11/2018 SUBJECTIVE: The patient tolerated the beta blockers. There were no arrhythmias noted. His stress test showed no arrhythmias. Echocardiogram revealed a mildly dilated LA with good LV function, mild LVH. The patient is asymptomatic walking without issues. PHYSICAL EXAMINATION: VITAL SIGNS: Stable. NECK: Negative JVD. LUNGS: Without rales. HEART: S1, S2. EXTREMITIES: Without edema. LABORATORY DATA: Unremarkable. IMPRESSION: 1. Palpitations. 2. Likely supraventricular tachycardia. 3. Hypertension. 4. Left ventricular hypertrophy. PLAN: Given these findings, the patient's cardiac status is stable. He can return to work without issues. He should go home on beta-blockers and better control of blood pressure. I have asked him to decrease his alcohol intake. A cardiac risk reduction program would be appropriate. Cliff Landrum MD
--- NOTE | 2018-08-11 20:14 | DS ---
HISTORY OF PRESENT ILLNESS: The patient is seen in room 266, bed 2. The patient is out of bed to chair. The patient states that his symptoms of chest pain, palpitation, all the symptoms at the time of the hospitalization has completely resolved. REVIEW OF SYSTEMS: A 14-system review was done, pertinent positive negative dictated above. PHYSICAL EXAMINATION: VITAL SIGNS: Afebrile. Telemetry shows normal sinus rhythm, no arrhythmia noted. Heart rate 84, 79, 86, blood pressure was elevated. Yesterday's systolic 150/160s. Today, the blood pressure is down to 130 systolic, diastolic in 80s and 70s after the patient's medications were titrated. HEENT: Head is normocephalic, atraumatic. HEENT examination shows pinkish conjunctivae. Anicteric sclerae. No oropharyngeal lesion. NECK: No neck rigidity. CHEST: Kyphosis. LUNGS: Shows no audible crackle, rales or wheezing. CARDIOVASCULAR: S1, S2, regular rhythm. Unable to appreciate any murmur, gallop or rub. ABDOMEN: Soft, obese. Positive bowel sound. No palpable hepatosplenomegaly. GENITALIA: Male. RECTAL: Deferred. EXTREMITIES: Shows no pitting edema, no calf tenderness, no Homans' sign. NEUROLOGIC: The patient is alert, awake, oriented x3. Cranial nerves II-XII intact. Gait examination is intact and independent. MUSCULOSKELETAL: Elevated body mass index. LABORATORY DATA: All diagnostics since the day of admission to today all reviewed. The patient is scheduled for an exercise stress test by Cardiology prior to discharge, which the patient is going to undergo. Echocardiogram results are pending. FINAL IMPRESSION AND DISCHARGE DIAGNOSES: 1. Chest pain, etiology undetermined. 2. Palpitations, etiology undetermined. 3. Sinus tachycardia. 4. Questionable uncontrolled accelerated hypertension versus uncontrolled hypertension. 5. Super morbid obesity. 6. Hypertriglyceridemia and hypercholesteremia. 7. Hypovitaminosis D. 8. Possible hypertensive cardiovascular disease. PLAN: At this time, the patient is going to undergo exercise stress test. The results were reviewed. The preliminary results are negative. The patient's echo results is pending. The patient will be requested to be cleared for discharge by Dr. Cliff Landrum from Cardiology. Discharge followup with PMD and Cardiology in [place], which is the patient's home state. The patient is advised to release all records to PMD and Cardiology in [place]. The patient is advised close outpatient followup with PMD, medical doctor and sales broker. The patient is advised weight loss. The patient is also advised outpatient evaluation for possible sleep apnea because of morbid obesity. The patient was also advised about seeking consultation with bariatric surgery to explore possibilities of weight loss, surgical versus nonsurgical options. Discharge medications as per updated ambulatory orders which was reviewed and updated and the patient was given new scripts. Time spent in the discharge process more than 45 minutes. Dictated and electronically signed, not read. Charles Schaefer MD
--- NOTE | 2018-08-11 23:23 | CARD ---
APPROVED REPORT Date of service: 08/11/2018 EKG Measurement Heart [id number] <Conclusion> Sinus bradycardia Otherwise normal ECG
== END 2018-08-11 14:08 | disposition home or self-care (01) ==
LOC: ED 08:44 → ERH 10:08 → 2RNO 08-10 01:06
PROVIDERS: ADMIT Internal Medicine; ATTEND Internal Medicine
DX: R07.9 Chest pain, unspecified (principal); E66.01 Morbid (severe) obesity due to excess calories; E78.1 Pure hyperglyceridemia; E78.5 Hyperlipidemia, unspecified; F17.200 Nicotine dependence, unspecified, uncomplicated; I11.9 Hypertensive heart disease without heart failure; I47.1 Supraventricular tachycardia; R31.29 Other microscopic hematuria; Z68.41 Body mass index [BMI] 40.0-44.9, adult; Z82.49 Family history of ischemic heart disease and other diseases of the circulatory system; E78.00 Pure hypercholesterolemia, unspecified; E55.9 Vitamin D deficiency, unspecified; E79.0 Hyperuricemia without signs of inflammatory arthritis and tophaceous disease
CPT/HCPCS: 36415; 71045; 80053; 80061; 80074; 80320; 80324; 80345; 80346; 80349; 80353; 80358; 80361; 81001; 82306; 82550; 83036; 83615; 83735; 83992; 84439; 84443; 84484; 84550; 85025; 85378; 85610; 85730; 86592; 86695; 86696; 87389; 87491; 87591; 93005; 93017; 93306; 93880; 96361; 96372; 96374; 96375; 99284; G0378; J1650; J2765; J7030